=== PATIENT | male | born 1950 | race Caucasian/White ===

== ENCOUNTER → 2016-12-23 | Outpatient (CLI) | payer OTHER ==
[~2016-12-23] MED LIST: ASPIR 8181 MG PO; FERREX 150150 MG PO; LIPITOR 20 MG T20 M1 PO; LIPITOR10 MG PO; LIPITOR40 MG PO; LISINOPRIL20 MG PO; METOPROLOL SUCC50 MG PO; NEXIUM40 MG PO; TYLENOL325 MG PO; XOPENEX 0.63 MG/3 M1 INH
== END ==
LOC: RAD 12:28
DX: R06.02 Shortness of breath (principal); R06.00 Dyspnea, unspecified

== ENCOUNTER → 2017-06-16 | Outpatient (CLI) | payer OTHER | LOC: CAT 09:12 | DX: R91.1 Solitary pulmonary nodule (principal); I25.10 Atherosclerotic heart disease of native coronary artery without angina pectoris; Z95.1 Presence of aortocoronary bypass graft ==

== ENCOUNTER → 2019-05-24 | Outpatient (CLI) | payer OTHER | LOC: SJCVCIMAG 08:40 | DX: I65.23 Occlusion and stenosis of bilateral carotid arteries (principal); I10 Essential (primary) hypertension; I25.10 Atherosclerotic heart disease of native coronary artery without angina pectoris; J84.9 Interstitial pulmonary disease, unspecified ==

== ENCOUNTER → 2019-10-25 | Outpatient (CLI) | payer OTHER | LOC: SJCVCIMAG 08:47 | PROVIDERS: ATTEND Internal Medicine | DX: I25.10 Atherosclerotic heart disease of native coronary artery without angina pectoris (principal); I49.3 Ventricular premature depolarization; R00.0 Tachycardia, unspecified; I10 Essential (primary) hypertension; E78.5 Hyperlipidemia, unspecified; I65.23 Occlusion and stenosis of bilateral carotid arteries; J84.9 Interstitial pulmonary disease, unspecified; Z95.1 Presence of aortocoronary bypass graft; Z87.891 Personal history of nicotine dependence; Z79.899 Other long term (current) drug therapy ==

== ENCOUNTER → 2020-05-07 | Outpatient (CLI) | payer OTHER | LOC: SJCVCIMAG 08:57 | PROVIDERS: ATTEND Internal Medicine | DX: R94.31 Abnormal electrocardiogram [ECG] [EKG] (principal); I25.10 Atherosclerotic heart disease of native coronary artery without angina pectoris; I10 Essential (primary) hypertension; E78.5 Hyperlipidemia, unspecified; I65.23 Occlusion and stenosis of bilateral carotid arteries; J84.9 Interstitial pulmonary disease, unspecified; Z95.1 Presence of aortocoronary bypass graft; Z87.891 Personal history of nicotine dependence; Z72.89 Other problems related to lifestyle ==

== ENCOUNTER → 2020-10-31 | Outpatient (CLI) | payer OTHER | LOC: SJCVC 09:27 | PROVIDERS: ATTEND Internal Medicine | DX: I44.5 Left posterior fascicular block (principal); R94.31 Abnormal electrocardiogram [ECG] [EKG]; I25.10 Atherosclerotic heart disease of native coronary artery without angina pectoris; I10 Essential (primary) hypertension; E78.5 Hyperlipidemia, unspecified; I65.23 Occlusion and stenosis of bilateral carotid arteries; J42 Unspecified chronic bronchitis; K21.9 Gastro-esophageal reflux disease without esophagitis; J84.9 Interstitial pulmonary disease, unspecified; Z95.1 Presence of aortocoronary bypass graft; Z87.891 Personal history of nicotine dependence; Z72.89 Other problems related to lifestyle; Z79.82 Long term (current) use of aspirin; Z79.899 Other long term (current) drug therapy ==

== ENCOUNTER → 2021-05-16 | Outpatient (CLI) | payer OTHER ==
[~2021-05-16] MED LIST changes: +ANTI-DIARRHEAL2 M1 PO; +ATORVASTATIN CA40 MG PO; +CELLCEPT500 MG PO; +FUROSEMIDE 40 M40 MG PO; +LOPRESSOR50 MG PO; +OFEV100 MG PO; +TYLENOL PM EX-1 EACH PO; +VITAMIN D3125 MC1 PO
== END ==
LOC: SJCVCIMAG 07:26
PROVIDERS: ATTEND Internal Medicine
DX: I08.8 Other rheumatic multiple valve diseases (principal); I65.23 Occlusion and stenosis of bilateral carotid arteries; J44.9 Chronic obstructive pulmonary disease, unspecified; I73.9 Peripheral vascular disease, unspecified; I25.10 Atherosclerotic heart disease of native coronary artery without angina pectoris; K21.9 Gastro-esophageal reflux disease without esophagitis; E78.5 Hyperlipidemia, unspecified; I10 Essential (primary) hypertension; Z95.1 Presence of aortocoronary bypass graft; Z87.891 Personal history of nicotine dependence; Z72.89 Other problems related to lifestyle; Z79.899 Other long term (current) drug therapy

== ENCOUNTER → 2021-05-17 | Outpatient (CLI) | payer OTHER ==
--- NOTE | 2021-05-17 07:53 | EKG ---
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1950 Requested By: Yariel Taylor Order Number: [id number] MD: Yariel Taylor Measurements Intervals [place] Rate: 82 P: 54 IL: 194 QRS: 102 QRSD: 101 T: -51 QT: 368 QTc: 430 Interpretive Statements Sinus rhythm Right axis deviation RVH T wave abnormality Baseline wander in lead(s) V5 Compared to ECG 01/14/2016 07:07:05 RVH now present Sinus tachycardia no longer present T wave abnormality is new Electronically Signed On 05-17-2021 7:53:45 BULLARD OPERATOR by Yariel Taylor [email or web address] <ELECTRONICALLY SIGNED> By: Yariel Taylor MD, [facility] 05/17/21 0753 [id number] 0729 Yariel Taylor MD, [facility] /EPI
--- NOTE | 2021-05-17 09:33 | NUR ---
LATE ENTRY. 0915 PT TO CV HOLDING RM 1 A/OX3 WITH NO C/O OR REQEUST. PTS AT BEDSIDE. MONITORS APPLYED AND FOOD TRAY. R GROIN CDI WITH NO HEMATOMA NOTED
--- NOTE | 2021-05-17 09:47 | CATHLAB ---
[facility] [place] [address] INVASIVE PROCEDURE REPORT Name: DANA SHERMAN Room #: [facility]#: [id number] Admission: 05/17/21 Attend Phys: Yariel Taylor MD, Discharge: Date of : 48 Report #: [id number] THIS REPORT FOR: cc: FAM - No family physician/PCP FAM - No family physician/PCP Yariel Taylor MD [facility] ~ APPROVED REPORT Study performed: 05/17/2021 07:53:36 Patient Details Patient Status: Out-Patient Room #: The patient is a 70 year-old male Event Personnel Yariel Taylor Telephone Ad Taker, Mayte Magallanes RTR Monitor, Jonelle Epstein RTR ScrubToro Mitch RN adventure education teacher Performed Trey Access - R femoral vein Right Heart Cath Only [id number] RHC Hemostasis with Manual pressure 75764 Initial Mod Sed Same Phys/QHP Gr5y [id number] 13908 Mod Sed Same Phys/QHP Ea [id number] Procedure Narrative The patient was brought electively to the Cardiac Catheterization Laboratory and was prepped and draped in a sterile manner. The Right Groin^ was infiltrated with 1% Lidocaine subcutaneous anesthesia. A Right Heart Catheterization was performed with a 7 Fr. [place] catheter and pressure were recorded. A PINNACLE 7FR Sheath #[id number] sheath was inserted into the RFV^. Coronary angiography was performed using coronary diagnostic catheters. Hemostasis was obtained with manual pressure following sheath removal without any complications. The patient tolerated the procedure well and there were no complications associated with the procedure. There was no hematoma. Intraoperative Conscious Sedation Sedation start time: 8:13 Case end Time: 8:54 Fentanyl 50 mcg Versed 2 mg Fluoro Time: 6.40 minutes Dose: DAP 3545.50 cGycm2 200 mGy Contrast Type and Amount: No Contrast Given 0 [facility] [place] [address] INVASIVE PROCEDURE REPORT Name: DANA SHERMAN Room #: REG [facility]#: [id number] Admission: 05/17/21 Attend Phys: Yariel Taylor, Discharge: Date of : 48 Report #: [id number] Hemodynamics The right atrial mean pressure is 8 mmHg. The right ventricular pressure is 78/1 mmHg. The pulmonary artery pressure is 70/24 mmHg with a mean of 40 mmHg. The mean pulmonary capillary wedge pressure is 14 mmHg. The cardiac output using thermo method is 4.03 L/min. The cardiac index using thermo method is 2.13 L/min/m2. PVR = 6.45 Wood units Conclusion 1. Severe pulmonary hypertension with normal filling pressures Pulmonary artery pressure 70/24mmHg; mean 40mmHg Wedge pressure 14mmHg PVR 6 Wood units 2. Consider treprostinil use <ELECTRONICALLY SIGNED> By: Yariel Taylor MD, [facility] 05/17/21946 6 6 Yariel Taylor MD, [facility] /INF
== END | disposition home or self-care (01) ==
LOC: CATH 06:18
PROVIDERS: ATTEND Internal Medicine
DX: I27.20 Pulmonary hypertension, unspecified (principal); I25.10 Atherosclerotic heart disease of native coronary artery without angina pectoris; R06.00 Dyspnea, unspecified; I10 Essential (primary) hypertension; E78.5 Hyperlipidemia, unspecified; K21.9 Gastro-esophageal reflux disease without esophagitis; J44.9 Chronic obstructive pulmonary disease, unspecified; Z98.890 Other specified postprocedural states; Z79.899 Other long term (current) drug therapy; Z95.1 Presence of aortocoronary bypass graft; Z82.49 Family history of ischemic heart disease and other diseases of the circulatory system; Z87.891 Personal history of nicotine dependence